=== PATIENT | female | born 2005 | race Two or more races ===

== ENCOUNTER 2024-02-18 18:35 | Emergency (ER) | payer MEDICAID, OTHER ==
[~2024-02-18] VITALS: Ht 157.5 cm; Wt 62.3 kg
[2024-02-18] MEDS: DexAMETHasone SOD PHOS 10MG/1ML VIAL INJ IM ONE (22:11)
[2024-02-18 22:24] VITALS: BP 124/90; PULSE 97; RESP 18; TEMP 97.8; O2SAT 97
[2024-02-18 22:48] LABS: Rapid Strep A Screen-Throat Negative
[2024-02-18] MEDS ORDERED: MOXI0.5D9 OP (23:10)
== END 2024-02-18 23:38 | disposition home or self-care (01) ==
LOC: ER 18:46
DX: H10.33 Unspecified acute conjunctivitis, bilateral (principal); J02.9 Acute pharyngitis, unspecified; B34.9 Viral infection, unspecified
CPT/HCPCS: 87070; 87880; 96372; 99283; J1100

== ENCOUNTER 2024-07-31 11:56 | Emergency (ER) | payer MEDICAID ==
[~2024-07-31] VITALS: Ht 157.5 cm; Wt 67.1 kg
[~2024-07-31 11:56] MED LIST: MOXI0.5D9 OP
[2024-07-31 12:36] LABS: Urine Bacteria None Seen /hpf (None Seen)
[2024-07-31 13:07] LABS: Urine Blood Negative /uL (Negative); Urine Clarity Clear (Clear); Urine Color Light-Yellow (Yellow); Urine Mucus FEW (None Seen); Urine Protein, UAD Negative (Negative); Urine Specific Gravity 1.021 (1.001-1.035); Urine Squamous Epithelial Cell FEW /hpf (<5); Urine Urobilinogen Normal (Negative); Urine WBC 1 /hpf (0 - 5)
[2024-07-31 14:44] VITALS: BP 121/67; TEMP 98.1
[2024-07-31 14:45] VITALS: PULSE 86; RESP 16; O2SAT 100
[2024-07-31] MEDS ORDERED: ACET500T58 PO (15:36)
[2024-07-31] MEDS ORDERED: PREN-96 PO (15:36)
--- NOTE | 2024-07-31 15:36 | ED.PDOC ---
HPI (NEURO) HPI Comments Pleasant 18-year-old female that presents with a chief complaint of a posterior headache x1 day Onset occurred after the patient slipped her posterior head while climbing up a set of stairs. Slipped on a toy car Accident occurred last night and currently complains of pain in his rated 5/10 Not taken medications for the symptoms listed above Denies fever, chills, night sweats Denies persistent nausea Denies vomiting Denies thunderclap headache Denies photophobia, phonophobia Denies head trauma around the time headache started Denies family history of brain issues persistent headaches Denies taking any blood thinner medication Denies vision/hearing changes Denies focal loss of strength/sensation or changes in speech Chief Complaint: Headache Time Seen by MD: 13:47 Primary Care Provider: DENIES Reviewed Notes: Nurses Notes, Medications, Allergies Information Source: Patient Mode of Arrival: Ambulatory Past Medical History PAST MEDICAL HISTORY: Denies Surgical History: Denies all surgeries INDUSTRIAL GAS SERVICER HELPER History: No Pertinent INDUSTRIAL GAS SERVICER HELPER History Family History Family History: Reviewed,noncontributory to illness Social History Smoker: Non-Smoker Alcohol: Denies ETOH Use Drugs: Denies Drug Use All Other Systems: Reviewed and Negative (per hpi) Physical Exam General Appearance: No Apparent Distress, Normal HEENT: Head (Normocephalic atraumatic), Normal ENT Inspection, Pharynx Normal, TMs Normal Neck: Full Range of Motion, Non-Tender, Normal, Normal Inspection Respiratory: Chest Non-Tender, Lungs Clear, No Accessory Muscle Use, No Respiratory Distress, Normal Breath Sounds Cardiovascular: No Edema, No JVD, No Murmur, No Gallop, Normal Peripheral Pulses, Regular Rate/Rhythm Breast Exam: Deferred Gastrointestinal: No Organomegaly, Non Tender, No Pulsatile Mass, Normal Bowel Sounds, Soft Genitalia: Deferred Pelvic: Deferred Rectal: Deferred Extremities: No calf tenderness, Normal capillary refill, Normal inspection, Normal range of motion, Non-tender, No pedal edema Musculoskeletal : Apperance: Normal Neurologic: Alert, equipment maintenance superintendent II-XII nml as Tested, No Motor Deficits, Normal Affect, Normal Mood, No Sensory Deficits Cerebellar Function: Normal Reflexes: Normal Skin: Dry, Normal Color, Warm Lymphatic: No Adenopathy Was a procedure done? Was a procedure done?: No Differential Diagnosis (SZ) Headache: Other (Hematoma) X-Ray, Labs, Meds, VS Vital Signs Date Time Temp Pulse Resp B/P (MAP) Pulse Ox O2 Delivery O2 Flow Rate FiO2 07/31/24 14:45 86 16 100 Room Air* 0 21 07/31/24 14:44 98.1 86 16 121/67 (85) 100 98.1 07/31/24 12:00 98.7 92 18 131/83 (99) 99 Lab Test 07/31/24 12:30 Range/Units Urine Color Light-yellow Yellow Urine Clarity Clear Clear Urine pH 6.0 5.0-9.0 Urine Specific [place] 1.021 1.001-1.035 Urine Protein Negative Negative Urine Ketones Negative Negative Urine Blood Negative Negative /uL Urine Nitrite Negative Negative Urine Bilirubin Negative Negative Urine Urobilinogen Normal Negative mg/dL Urine Leukocyte Esterase Negative Negative /uL Urine RBC 1 0 - 4 /hpf Urine WBC 1 0 - 5 /hpf Urine Squamous Epithelial Cells Few <5 /hpf Urine Bacteria None seen None Seen /hpf Urine Mucus Few None Seen Urine Glucose Normal Normal mg/dL Urine Test Positive Negative X-Ray, Labs, Meds, VS Comment The patients history and physical exam are consistent with a benign headache. Considered subarachnoid hemorrhage however this is less likely given that the patient has had a similar and worst headaches in the past, the lack of trauma, and the slow onset with intermittent symptomatology. Low suspicion of meningitis given the afebrile, well-appearing, and without meningismus on exam. Additionally no history of recent trauma prior to the patient experiencing this headache. Finally, the patient does not report any positional exacerbation with the headaches and has not had a recent spinal procedures therefore my suspicion for central causes and post procedural etiolo gies of headaches are less likely. Low concern for meningitis as there are no signs of fever, altered mentation nor neck stiffness. Low concern for subarachnoid hemorrhage there are no signs of a thunderclap headache Low concern for subdural hematoma and intracranial hemorrhage as there is no history of trauma, progressively worsening headache and neuroexam is unremarkable. Low suspicion for brain tumor as neuroexam is unremarkable. No nausea vomiting. No morning or nocturnal headache. No suspicion for temporal arteritis as there are no signs of fever, muscle weakness, jaw claudication, no transient visual loss. Given benign exam and history, CT imaging was discussed with the patient and was deferred during this visit. While in the ED, the patient had + preg test. Patient was overall well-appearing and hemodynamically stable in the ED. They were able to ambulate and continued to have a nonfocal exam in the emergency department. Discussed continued symptomatic treatment at home. Recommended follow up with PCP. Return precautions to the ED discussed Counseled to start headache diary Recommended headache elimination diet Avoid prolonged periods of fasting Drink plenty of water Exercise daily, limit screen time Aim to sleep 8 to 9 hours per night, practice good hygiene ED precautions given Take Tylenol prn for pain Rx Follow-up with PCP in 2 to 3 days Patient verbalized understanding and agreed to treatment plan Vital signs stable, afebrile, no acute distress noted Patient ambulatory with strong steady gait Advised to return precautions for any new or worsening symptoms, return to ER immediately for re-evaluation Patient is aware that the purpose of this visit was for an acute medical emergency requiring emergent stabilization. Chronic conditions, including malignancies have not been ruled out. Patient is instructed to follow up with PCP as directed and discharge instructions for continued care and workup. If unable to arrange follow-up, patient is to return to the emergency department for reassessment. Patient (parent or legal guardian if applicable) was given verbal and written discharge instructions and acknowledges understanding. Time of 1ST Reevaluation: 15:35 Reevaluation 1ST: Improved Patient Education/Counseling: Diagnosis, Treatment Family Education/Counseling: No Family Present Departure 1 Departure Time of Disposition: 15:36 Impression: Primary Impression: Headache Qualified Codes: R51.9 - Headache, unspecified Additional Impression: Positive test Disposition: HOME / SELF CARE / HOMELESS Condition: Stable e-Prescriptions Vit W/ Ferrous Fumara ( One Daily) Daily Tab 1 TAB PO DAILY for 30 Days, #30 TAB 3 Refills Prov: FRENCH GUERRERO OPERATIVE SUPERVISOR 07/31/24 Acetaminophen (Acetaminophen) 500 Mg Tab 500 MG PO Q6HP PRN for 10 Days, #40 TAB 0 Refills Prov: FRENCH GUERRERO NP 07/31/24 Discharged With: Self Critical Care Note Critical Care Time?: No Stability Stability form required: No Heart Score Heart Score: Heart Score Response (Comments) Value History N/A 0 EKG N/A 0 Age N/A 0 Risk Factors N/A 0 Troponin N/A 0 Total 0 FRENCH GUERRERO NP Jul 31, 2024 15:36
== END 2024-07-31 15:49 | disposition home or self-care (01) ==
LOC: ER 11:56
DX: O26.899 Other specified pregnancy related conditions, unspecified trimester (principal); R51.9 Headache, unspecified
CPT/HCPCS: 81001; 81025